=== PATIENT | female | born 1955 | race Caucasian/White ===

== ENCOUNTER 2017-10-26 11:47 | Day surgery (SDC) | payer OTHER ==
[~2017-10-26] VITALS: Ht 154.9 cm; Wt 60.8 kg
[2017-10-26] MEDS ORDERED: FERRIC GLUCONATE 125 MG in NACL 0.9% 100 ML IV SCH (12:40)
[2017-10-26 13:15] VITALS: BP 145/58
--- NOTE | 2017-10-26 13:20 | NUR ---
IV IRON INFUSING WELL INITIATED AT 1320 WITH NO COMPLICATIONS
--- NOTE | 2017-10-26 13:48 | NUR ---
PT TOLERATING IRON INFUSION WELL. PT STABLE, PT DENIES PAIN OR DISCOMFORT. PT TALKING ON HER CELL PHONE. WILL CONTINUE TO MONITOR.
--- NOTE | 2017-10-26 14:44 | NUR ---
IRON INFUSION COMPLETED AT THIS TIME. PT STABLE, VS STABLE.
[2017-10-26 14:46] VITALS: BP 138/59
--- NOTE | 2017-10-26 14:55 | NUR ---
DISCHARGE PACKET AND EDUCATION GIVEN. ALL QUESTIONS ANSWERED, PT VERBALIZES UNDERSTANDING. PT AMBULATED TO THE RESTROOM AND VOIDED.
--- NOTE | 2017-10-26 15:00 | NUR ---
IV DISCONTINUED WITH CANNULA INTACT. ID BAND REMOVED. PT DISCHARGE/TAKEN TO FRONT LOBBY IN STABLE CONDITION.
== END 2017-10-26 15:00 | disposition home or self-care (01) ==
LOC: MMU 11:47 → MDS 11:47
PROVIDERS: ATTEND Internal Medicine Gastroenterology
DX: D50.9 Iron deficiency anemia, unspecified (principal)
CPT/HCPCS: J2916; J7120

== ENCOUNTER 2018-06-14 08:16 | Day surgery (SDC) | payer OTHER ==
[~2018-06-14] VITALS: Ht 152.4 cm; Wt 61.7 kg
[2018-06-14] MEDS ORDERED: SODIUM FERRIC GLUCONATE 125 MG in NACL 0.9% 100 ML IV SCH (09:25)
== END 2018-06-14 10:53 | disposition still patient (30) ==
LOC: MDS 08:16 → MMU 08:19 → MDS 10:53
PROVIDERS: ATTEND Internal Medicine Gastroenterology
DX: D50.9 Iron deficiency anemia, unspecified (principal); I10 Essential (primary) hypertension; Z98.51 Tubal ligation status
CPT/HCPCS: 96365; J2916; 96366

== ENCOUNTER 2018-07-01 09:23 | Day surgery (SDC) | payer OTHER ==
[~2018-07-01] VITALS: Ht 152.4 cm; Wt 61.2 kg
[2018-07-01 11:27] LABS: EOSINOPHILS # (AUTO) 0.2 K/uL (0-0.4); MEAN CORPUSCULAR HEMOGLOBIN 32 pg (27-31); MONOCYTES # (AUTO) 0.5 K/uL (0.8-1.0); WHITE BLOOD COUNT (AUTO) 3.3 K/uL (4.8-10.8)
[2018-07-01 11:35] LABS: EOSINOPHILS % (AUTO) 5.8 % (0.0-4.0); LYMPHOCYTES # (AUTO) 1.1 K/uL (2.5-16.5); LYMPHOCYTES % (AUTO) 34.3 % (20.5-51.1); MEAN CORPUSCULAR HGB CONC 31 g/dL (33-37); MEAN CORPUSCULAR VOLUME 101.9 fL (80-94); MONOCYTES % (AUTO) 14.8 % (1.7-9.3); NEUTROPHILS # (AUTO) 1.4 K/uL (1.8-7.7); NEUTROPHILS % (AUTO) 44.1 % (42.2-75.2); PLATELET COUNT (AUTO) 104 K/uL (140-450); RED BLOOD CELL COUNT(AUTO) 1.72 MIL/uL (4.20-5.40); RED CELL DISTRIBUTION WIDTH 14.9 % (11.6-13.7)
[2018-07-01 11:42] LABS: HEMATOCRIT 17.5 % (36-48); HEMOGLOBIN 5.5 g/dL (12.0-16.0)
[2018-07-01] MEDS ORDERED: fentaNYL 0.05 MG/ML VIAL ONE (11:43)
[2018-07-01] MEDS ORDERED: MIDAZOLAM 2 MG/2 ML VIAL ONE ×2 (11:44→11:58)
[2018-07-01] MEDS ORDERED: GLUCAGON 1 MG VIAL ONE (12:28)
[2018-07-01] MEDS ORDERED: GLUCAGON 1 MG VIAL IVP ONE (13:05)
[2018-07-01] MEDS ORDERED: fentaNYL 0.05 MG/ML VIAL IVP ONE (13:05)
[2018-07-01] MEDS ORDERED: MIDAZOLAM 2 MG/2 ML VIAL IVP ONE (13:05)
--- NOTE | 2018-07-01 18:00 | NUR ---
RECEIVED PT REPORT FROM OR NURSE, FRANKY. PT IS AAOX4, ABLE TO AMBULATE. IV NOTED TO RIGHT HAND 22G, SL, INTACT AND PATENT. LEFT AC 18G, RUNNING PACKED RBC, INFUSING AT 150ML/HR, PATENT AND ASYMPTOMATIC. ORIENT PT TO ROOM. BED IN LOWEST POSITION. CALL LIGHT WITHIN REACH.
--- NOTE | 2018-07-01 18:15 | NUR ---
PT DENIES ANY PAIN. NO S/S OF RESPIRATORY DISTRESS. PT EATING DINNER, STANDBY ASSISTANCE PROVIDED.
[2018-07-01] MEDS ORDERED: AMLO5TAB PO (18:30)
[2018-07-01] MEDS ORDERED: FERR325E14 PO ×2 (18:32→18:33)
[2018-07-01] MEDS ORDERED: CARV3.122 PO (18:34)
[2018-07-01] MEDS ORDERED: VITA1TAB44 PO (18:34)
[2018-07-01] MEDS ORDERED: PANT40EC PO (18:35)
[2018-07-01] MEDS ORDERED: VITD1000 PO (18:35)
[2018-07-01] MEDS ORDERED: HYDR100T79 PO (18:36)
[2018-07-01] MEDS ORDERED: SODI650T2 PO (18:41)
--- NOTE | 2018-07-01 18:50 | NUR ---
PT'S DAUGHTER IS HERE AT BEDSIDE. PLAN OF CARE DISCUSSED, PT AND HER DAUGHTER VERBALIZED UNDERSTANDING.
--- NOTE | 2018-07-01 19:25 | NUR ---
RECEIVED REPORT FROM DAY SHIFT NURSE, NANY, AT PT BEDSIDE. PT IN STABLE CONDITION. FAMILY IS AT BEDSIDE. PT AAOX4. RESPIRATIONS ARE EVEN AND UNLABORED. SECOND UNIT OF [facility] ALMOST FINISHED INFUSING. PT IS TOLERATING WELL. SAFETY MEASURES IN PLACE. WILL CONTINUE TO MONITOR PT.
--- NOTE | 2018-07-01 19:25 | NUR ---
ENDORSED PT TO GARAGE HELPER RN. PT IS IN STABLE CONDITION.
--- NOTE | 2018-07-01 19:26 | NUR ---
CALLED LAB TO DRAW BLOOD AROUND 2129.
--- NOTE | 2018-07-01 19:50 | NUR ---
[facility] HAVE FINISHED INFUSING. PT HAS NO SIGNS OR SYMPTOMS OF REACTION. VS: T-98.3, O2- 98%, BP- 138/57, HR- 62, RR- 14. LAB WILL DRAW LABS IN 2 HOURS. WILL CONTINUE TO MONITOR PT.
--- NOTE | 2018-07-01 21:52 | NUR ---
SECURITY SPECIALIST HERE TO DRAW PT LABS.
[2018-07-01 22:18] LABS: EOSINOPHILS # (AUTO) 0.2 K/uL (0-0.4); EOSINOPHILS % (AUTO) 4.4 % (0.0-4.0); HEMATOCRIT 28.1 % (36-48); HEMOGLOBIN 9.1 g/dL (12.0-16.0); LYMPHOCYTES % (AUTO) 29.4 % (20.5-51.1); MEAN CORPUSCULAR HEMOGLOBIN 31 pg (27-31); MEAN CORPUSCULAR HGB CONC 32 g/dL (33-37); MEAN CORPUSCULAR VOLUME 94.6 fL (80-94); MONOCYTES # (AUTO) 0.4 K/uL (0.8-1.0); MONOCYTES % (AUTO) 12.9 % (1.7-9.3); NEUTROPHILS # (AUTO) 1.8 K/uL (1.8-7.7); NEUTROPHILS % (AUTO) 52.3 % (42.2-75.2); PLATELET COUNT (AUTO) 102 K/uL (140-450); RED BLOOD CELL COUNT(AUTO) 2.97 MIL/uL (4.20-5.40); RED CELL DISTRIBUTION WIDTH 17.4 % (11.6-13.7); WHITE BLOOD COUNT (AUTO) 3.4 K/uL (4.8-10.8)
--- NOTE | 2018-07-01 22:45 | NUR ---
DISCHARGE INSTRUCTIONS GIVEN. PT AND PT DAUGHTER VERBALIZED UNDERSTANDING. IV AND WRISTBANDS REMOVED. ASSISTED PT OFF OF UNIT VIA WHEELCHAIR TO PT DAUGHTER CAR. ALL BELONGINGS ARE WITH PT. PT IN STABLE CONDITION. PT DISCHARGED.
== END 2018-07-01 22:45 | disposition home or self-care (01) ==
LOC: MDS 09:23 → MMU 09:23 → MTU 18:00 → MDS 22:45
PROVIDERS: ATTEND Internal Medicine Gastroenterology
DX: D50.0 Iron deficiency anemia secondary to blood loss (chronic) (principal); Q27.33 Arteriovenous malformation of digestive system vessel; I10 Essential (primary) hypertension; E11.9 Type 2 diabetes mellitus without complications; Z91.018 Allergy to other foods; Z98.890 Other specified postprocedural states; Z79.899 Other long term (current) drug therapy; Z98.51 Tubal ligation status
CPT/HCPCS: 36415; 43270; 85025; 86886; 86900; 86901; 86920; J1610; J2250; J3010; J7030; P9016

== ENCOUNTER 2018-07-22 10:43 | Day surgery (SDC) | payer OTHER ==
[~2018-07-22] VITALS: Ht 152.4 cm; Wt 58.5 kg
[~2018-07-22 10:43] MED LIST: AMLO5TAB PO; CARV3.122 PO; FERR325E14 PO; HYDR100T79 PO; PANT40EC PO; SODI650T2 PO; VITA1TAB44 PO; VITD1000 PO
[2018-07-22] MEDS ORDERED: fentaNYL 0.05 MG/ML VIAL ONE (12:08)
[2018-07-22] MEDS ORDERED: MIDAZOLAM 2 MG/2 ML VIAL ONE (12:09)
== END 2018-07-22 14:08 | disposition home or self-care (01) ==
LOC: MDS 10:43 → MMU 10:49 → MDS 14:08
PROVIDERS: ATTEND Internal Medicine Gastroenterology
DX: K31.811 Angiodysplasia of stomach and duodenum with bleeding (principal); D50.0 Iron deficiency anemia secondary to blood loss (chronic); I10 Essential (primary) hypertension; E11.9 Type 2 diabetes mellitus without complications; Z91.018 Allergy to other foods; Z79.899 Other long term (current) drug therapy; Z98.51 Tubal ligation status; Z98.890 Other specified postprocedural states
CPT/HCPCS: 43255; J2250; J3010; J7120

== ENCOUNTER 2018-12-20 06:20 | Day surgery (SDC) | payer OTHER ==
[~2018-12-20] VITALS: Ht 154.9 cm; Wt 59.9 kg
[2018-12-20] MEDS ORDERED: MIDAZOLAM 2 MG/2 ML VIAL ONE ×2 (07:36→08:12)
[2018-12-20] MEDS ORDERED: fentaNYL 0.05 MG/ML VIAL ONE (07:36)
[2018-12-20] MEDS ORDERED: MIDAZOLAM 2 MG/2 ML VIAL IVP ONE (08:25)
== END 2018-12-20 09:35 | disposition home or self-care (01) ==
LOC: MDS 06:20 → MMU 06:21 → MDS 09:35
PROVIDERS: ATTEND Internal Medicine Gastroenterology
DX: Q27.33 Arteriovenous malformation of digestive system vessel (principal); D50.9 Iron deficiency anemia, unspecified; E11.9 Type 2 diabetes mellitus without complications; I10 Essential (primary) hypertension; Z91.018 Allergy to other foods; Z79.899 Other long term (current) drug therapy; Z98.51 Tubal ligation status; Z98.49 Cataract extraction status, unspecified eye
CPT/HCPCS: 43270; J2250; J3010

== ENCOUNTER 2019-03-07 08:22 | Day surgery (SDC) | payer OTHER ==
[~2019-03-07] VITALS: Ht 154.9 cm; Wt 62.6 kg
[2019-03-07] MEDS ORDERED: fentaNYL 0.05 MG/ML VIAL ONE (11:19)
[2019-03-07] MEDS ORDERED: MIDAZOLAM 2 MG/2 ML VIAL ONE ×2 (11:20)
[2019-03-07] MEDS ORDERED: MIDAZOLAM 2 MG/2 ML VIAL IVP ONE (11:28)
== END 2019-03-07 12:55 | disposition home or self-care (01) ==
LOC: MDS 08:22 → MMU 08:27 → MDS 12:55
PROVIDERS: ATTEND Internal Medicine Gastroenterology
DX: Q27.30 Arteriovenous malformation, site unspecified (principal); K92.2 Gastrointestinal hemorrhage, unspecified; I10 Essential (primary) hypertension; E11.9 Type 2 diabetes mellitus without complications; D50.9 Iron deficiency anemia, unspecified; Z91.018 Allergy to other foods; Z98.51 Tubal ligation status; Z98.890 Other specified postprocedural states; Z79.899 Other long term (current) drug therapy; Z98.49 Cataract extraction status, unspecified eye
CPT/HCPCS: 43255; J2250; J3010